=== PATIENT | male | born 1980 | race Caucasian/White ===

== ENCOUNTER 2018-03-14 03:49 | Emergency (ER) | payer BC ==
[2018-03-14 04:00] VITALS: BP 150/100; PULSE 95; TEMP 97.9; BMI 25.4
--- NOTE | 2018-03-14 04:02 | PDOC ---
History of Present Illness - General Chief Complaint: Pain, Acute Stated Complaint: LOWER BACK PAIN, NECK PRESSURE TROUBLE SLEEPING Time Seen by Provider: 03/14/18 03:55 History Source: Patient Exam Limitations: No Limitations - History of Present Illness Initial Comments: 03/14/18 04:02 This is a 37-year-old male who comes in complaining of nonspecific discomfort and feelings of anxiety that are keeping him from sleeping. Patient has been in this ED 32 years and came from [place]. Patient has not gotten a primary care doctor yet and otherwise denies any medications. Patient appears to be somewhat anxious here in the emergency room. PAST MEDICAL HISTORY: no significant history PAST SURGICAL HISTORY: no significant history FAMILY HISTORY: no pertinant history SOCIAL HISTORY: Pt lives with family and is employed. MEDICATIONS: reviewed ALLERGIES: As per nursing notes Review of Systems General: No fevers or chills, no weakness, no weight loss HEENT: No change in vision. No sore throat,. No ear pain CardioVascular: No chest pain or shortness of breath Respiratory:No cough, or wheezing. Gastrointestinal: no nausea, vomitting, diarrhea or constipation, No rectal bleeding Genitourinary: No dysuria, hematuria, or frequency Musculoskeletal: No joint or muscle pain or swelling Neurologic: No headache, vertigo, dizziness or loss of consciousness Psychiatric: nor depression Skin: No rashes or easy bruising Endocrine: no increased thirst or abnormal weight change Allergic: no skin or latex allergy All other systems reviewed and normal GENERAL: The patient is awake, alert, and fully oriented, in no acute distress. HEAD: Normal with no signs of trauma. EYES: Pupils equal, round and reactive to light, extraocular movements intact, sclera anicteric, conjunctiva clear. EXTREMITIES: Normal range of motion, no edema. BACK: There is no tenderness on palpation. There is no CVA angle tenderness NEUROLOGICAL: Normal speech, normal gait. grossly intact PSYCH: Normal mood, normal affect. SKIN: Warm, Dry, normal turgor, no rashes or lesions noted. Past History - Past Medical History Allergies/Adverse Reactions: Allergies Allergy/AdvReac Type Severity Reaction Status Date / Time No Known Allergies Allergy Verified 03/14/18 03:51 Home Medications: Ambulatory Orders Zolpidem Tartrate [Ambien] 5 mg PO HS #10 tablet MDD 1 03/14/18 COPD: No Other medical history: ANXIETY - Suicide/Smoking/Psychosocial Hx Smoking History: Never smoked Have you smoked in the past 12 months: No Information on smoking cessation initiated: No Hx Alcohol Use: Yes (WEEKENDS) Drug/Substance Use Hx: No Substance Use Type: None *Physical Exam - Vital Signs Last Vital Signs Temp Pulse Resp BP Pulse Ox 97.9 F 95 H 18 150/100 100 03/14/18 03:52 03/14/18 03:52 03/14/18 03:52 03/14/18 03:52 03/14/18 03:52 *DC/Admit/Observation/Transfer Diagnosis at time of Disposition: Anxiety about health - Discharge Dispostion Disposition: HOME Condition at time of disposition: Stable Decision to Admit order: No - Referrals Referrals: Adriana Ramírez MD [Staff Physician] - - Patient Instructions Additional Instructions: Absent a prescription to her pharmacy for Ambien you can take one before bed tonight. It is important that you get a primary care doctor and follow up with your primary care doctor. Return to the emergency department immediately with ANY new, persistent or worsening symptoms. Continue any medications as previously prescribed by your physician. You should follow up with your primary doctor as soon as possible regarding today's emergency department visit. . Please make sure your doctor reviews the results of your emergency evaluation. Thank you for coming to the Emergency Department today for your care. It was a pleasure to see you today. Please note that your evaluation is INCOMPLETE until you follow-up with your doctor. - Post Discharge Activity
== END 2018-03-14 04:10 | disposition home or self-care (01) ==
LOC: FER 03:49
DX: F41.0 Panic disorder [episodic paroxysmal anxiety] (principal)
CPT/HCPCS: 99281-25